=== PATIENT | female | born 2005 | race Caucasian/White ===

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

== ENCOUNTER 2024-12-30 18:15 | Outpatient (CLI) | payer SELFPAY ==
--- NOTE | 2024-12-30 19:20 | XR_ITS ---
PROCEDURE INFORMATION: Exam: XR Right Tibia and Fibula Exam date and time: 12/30/2024 7:11 PM Age: 19 years old Clinical indication: Injury or trauma; Fall; Blunt trauma; Lower leg; Right; Additional info: Fall yesterday tib/fib pain TECHNIQUE: Imaging protocol: Radiologic exam of the right tibia and fibula. Views: 2 views. COMPARISON: No relevant prior studies available. FINDINGS: Bones/joints: Normal. Soft tissues: Normal. IMPRESSION: No acute findings.
== END 2024-12-30 23:59 | disposition home or self-care (01) ==
PROVIDERS: PCP Family Medicine; Visit Provider Nurse Practitioner
DX: S89.91XA Unspecified injury of right lower leg, initial encounter (principal); W10.8XXA Fall (on) (from) other stairs and steps, initial encounter
CPT/HCPCS: 73590

== ENCOUNTER 2025-03-16 16:42 | Emergency (ER) | payer OTHER, SELFPAY ==
--- OUTSIDE RECORDS SUMMARY | 2024-12-17 17:30 | XMS_ITS ---
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 If intended option is not shown, discontinue and re-order from Quick Search* 07/09/2020 Active Problems No Known Problems Encounters Encounter Location Date Provider Diagnosis [facility] [address] [facility] [address] [place] [address] 12/17/2024 Provider Migration Sore throat J02.9 Assessments Encounter Date Diagnosis (ICD Code) Assessment Notes Treatment Notes Treatment Clinical Notes Section Notes 12/17/2024 Sore throat (ICD-10 - J02.9) Plan Of Treatment Medication Medication Name Sig Start Date Stop Date Notes Augmentin 875 MG-125 MG 1 TAB(S) ORALLY EVERY 12 HOURS; Duration: 10 DAY(S) 07/09/2020 *Please review and p ick correct strength-formulation from Medispan options. If intended option is not shown, discontinue and re-order from Quick Search* Progress Notes * Sariah WONG EDOB: [birth year] (19 yo F)Acc No.[id number]:12/17/2024 Patient: Flaquita Sariah SERNA Provider: Juju tang Migration :2005 A ge:19 Y S ex:Female Date:12/17/2024 Address:[address] [place] [address], [place], [id number] Pcp:Farhat Greer Subjective: * Chief Complaints: * 1 . Multum To Medispan Conversion Encounter. * Medical History: Objective: * Vitals: Assessment: * Assessment: 1. S ore throat - J02.9 (Primary) Plan: * Treatment: * * Electronic signature of Prov ider Migration on 03/16/2025 at 05:10 PM EDT Sign off status: Pending * Provider: Juju Bey Date: 0 12/17/2024 Generated for Ly castellano/Dayday/Michaelitting on: 0 03/16/2025 05:10 PM EDT
--- NOTE | 2025-03-16 16:49 | ED_ITS ---
Discharge Plan Disposition Patient Disposition: Home, Self-Care Condition: Good Prescriptions Prescriptions: No Action medroxyprogesterone [Depo-Provera] 150 mg/mL suspension 150 mg IM [id number] Referrals Follow up/Referrals: Ky Lynn MD [Primary Care Provider, Internal Medicine] - See instructions Activity Restrictions/Add. Instructions Additional Instructions/Restrictions: You were evaluated in the emergency department today. Take Tylenol and ibuprofen as needed for pain. Keep your wound clean and dry. It is okay to wash your hair in the shower but use caution and make sure to be gentle around the area. Pat to dry as opposed to rubbing. Elsa will need to be removed in about 10 to 12 days. Return to the emergency department for new or worsening symptoms. Clinical Impressions Clinical Impression: Laceration of scalp Stand Alone Forms Stand Alone Forms: Work/School Release Instructions Patient Instructions: DI for Laceration Repair, DI for Laceration Repair -- Elsa Print Language Print Language: Estonian Discharge ED Provider: Janeth Prescott General Adult HPI <Vale Montague APRN - Last Filed: 03/16/25 17:07> General Chief complaint: Wound/Laceration Stated complaint: AO 03/16/25 1530 laceration top of head Time Seen by Provider: 03/16/25 17:07 Related Data Home Medications ?Medication ?Instructions ?Recorded ?Confirmed medroxyprogesterone 150 mg/mL 150 mg IM [id number] control 03/24/22 12/30/24 intramuscular suspension (Depo-Provera) Allergies Allergy/AdvReac Type Severity Reaction Status Date / Time No Known Allergies Allergy Verified 12/30/24 17:33 <Janeth Prescott DO - Last Filed: 03/16/25 17:32> History of Present Illness HPI narrative: This patient is a 19-year-old female without significant medical history presenting to the emergency department for evaluation of concern for laceration to her scalp. A large glass decorative box fell and hit her head on the top of her head causing an open wound. She did not lose consciousness when this happened. No other concerns or complaints noted. She is unsure when her last tetanus shot was but is not interested in updating today. [facility] <Vale Montague APRN - Last Filed: 03/16/25 17:07> [facility] Disclaimer: The information contained in this section may have been updated after the patient was seen, as this information can be updated by other users. Medical History Lower extremity injury Strep throat Syncope Nausea & vomiting Abdominal pain Surgical History History of tonsillectomy and adenoidectomy History of placement of ear tubes Social History Smoking Status: Never smoker alcohol intake: never substance use type: denies use current occupational status: student Travel in the last 8 weeks?: None Have you lived/traveled outside [place] in past 30 days?: No Contact w/someone who lives/traveled outside [place] past 30 days?: No Exposure to someone with infectious disease in past 14 days?: No Do you have a fever (greater than 100.4 F or 38 C)?: No Have you tested positive for COVID-19?: No Exposed to someone with COVID-19 in past 14 days?: No Do you have a sore throat?: No Do you have a cough?: No Do you have any weakness?: No Do you have any diarrhea?: No Are you experiencing any unusual bleeding?: Yes Do you have any muscle aches/pain?: No Do you have any abdominal pain?: No Are you experiencing loss of taste or smell?: No Other Medical History Have you received the Flu Vaccine for this season: No Have you received the Pneumonia Vaccine: No <Janeth Prescott DO - Last Filed: 03/16/25 17:32> ROS Obtained: Yes All systems reviewed & no additional complaints except as documented Physical Exam <Vale Montague APRN - Last Filed: 03/16/25 17:07> Expanded Head Exam Head image: 2 1. 1 cm laceration. Hemostatic <Janeth Prescott DO - Last Filed: 03/16/25 17:32> General General appearance: alert and in no apparent distress Head Head exam: normocephalic and other Expanded Head Exam Head image: 2 1. 1 cm laceration. Hemostatic Eye Eye exam: Present normal appearance, PERRL and EOMI ENT ENT exam: Present normal exam, normal oropharynx, mucous membranes moist and normal external ear exam Neck Neck exam: Present normal inspection, full ROM and trachea midline; Absent tenderness Chest Chest inspection: Present normal inspection and symmetric chest wall rise; Absent tenderness Respiratory Respiratory exam: Present normal lung sounds bilaterally; Absent respiratory distress, wheezes, stridor or accessory muscle use Cardiovascular Cardiovascular exam: Present regular rate and normal rhythm Abdominal Exam Abdominal exam: Present soft; Absent distention, tenderness or guarding Extremities Exam Extremities exam: Present normal inspection, full ROM and normal capillary refill; Absent tenderness or edema Back Exam Back exam: Present normal inspection and full ROM; Absent tenderness Neurological Exam Neurological exam: Present alert, oriented X3, CN II-XII intact and normal gait; Absent motor sensory deficit Psychiatric Psychiatric exam: Present normal affect and normal mood Skin Skin exam: Present warm and dry Medical Decision Making <Vale Montague APRN - Last Filed: 03/16/25 17:07> Medical Records Screening: Per USPSTF and CDC recommendations, given the prevalence of disease in our region, it is our hospital?s policy to screen for HIV and viral Hepatitis for all patients aged 18 and over and those with ongoing risk factors. Vital Signs: 03/16/25 16:50 Temperature 98.0 F Temperature Source Oral Pulse Rate [Radial] 90 Respiratory Rate 18 Blood Pressure [Right Arm] 120/78 Blood Pressure Mean [Right Arm] 92 Blood Pressure Source [Right Arm] Automatic Cuff Blood Pressure Position [Right Arm] Sitting 02 Sat by Pulse Oximetry 99 Oxygen Delivery Method Room Air Orders (Tests/Meds): ORDERS Category Date Time Status HIV Combo Stat Lab 03/16/25 16:57 Ordered Hepatitis C Ab Qual. W/ RFX Stat Lab 03/16/25 16:57 Ordered <Janeth Prescott DO - Last Filed: 03/16/25 17:32> Medical Records Medical records reviewed: Yes I reviewed the patient's medical records. Kilo Inquiry Pt receiving controlled substance: No Vital Signs: 03/16/25 16:50 Temperature 98.0 F Temperature Source Oral Pulse Rate [Radial] 90 Respiratory Rate 18 Blood Pressure [Right Arm] 120/78 Blood Pressure Mean [Right Arm] 92 Blood Pressure Source [Right Arm] Automatic Cuff Blood Pressure Position [Right Arm] Sitting 02 Sat by Pulse Oximetry 99 Oxygen Delivery Method Room Air Lab Data Lab results reviewed: Yes I reviewed the patient's lab results. Orders (Tests/Meds): ORDERS Category Date Time Status HIV Combo Stat Lab 03/16/25 16:57 Ordered Hepatitis C Ab Qual. W/ RFX Stat Lab 03/16/25 16:57 Ordered Medical Decision Narrative: In summary, this patient is a 19-year-old female presenting to the Emergency Department for evaluation of laceration to the scalp. Differential diagnoses considered include but are not limited to laceration, abrasion, concussion, skull fracture. Ruling out the most morbid conditions drove assessment. On exam, the patient is well-appearing. She has a laceration to the top of her scalp with no significant surrounding soft tissue swelling. No foreign body noted. She did not lose consciousness and has no significant headache. She is neurologically intact. She consents to repair with elsa after explanation of risk versus benefit. She does not consent to Tdap booster. Wound was irrigated and stapled without issue. Patient need to be appropriate for discharge afterward. Strict return precautions given as well as instructions for wound care Procedures <Janeth Prescott DO - Last Filed: 03/16/25 17:32> Risk/Benefits of Procedure(s) Were Explained: Yes Laceration Laceration 1: Site: scalp Size (cm): 1 Description: linear Depth: simple, single layer Pre-repair: wound explored, irrigated extensively and deep structures intact Skin layer closed with: other (Elsa x 2) Critical Care <Janeth Prescott DO - Last Filed: 03/16/25 17:32> Critical Care Time Critical Care Time: No
[2025-03-16 16:50] VITALS: BP 120/78; PULSE 90; RESP 18; TEMP 36.7; O2SAT 99; BMI 24.7
--- OUTSIDE RECORDS SUMMARY | 2025-03-16 17:10 | XMS_ITS | Data Portability ---
Author Organization [facility] [employer] [facility] Address [address] [place] [address] Care Team Providers Care Optometry Assistant Name Role Phone ARIANE ARSHAD Primary Care Provider Unavailabl e Assessment No assessment recorded. Plan of Treatment Reminders Order Date Submit Date Provider Last Modified By Organization Details Last Modified Time Details Appointments FOLLOW UP 15 2024 01:30P Sully Arshad APRN Not available Not available Not available Lab test, urine [address], [address], 01/02/2025 18:16:13 test, urine [address], [address], 10/14/2024 13:31:54 rapid strep group A, throat [address], [address], 08/02/2024 13:36:32 chlamydia trachomat is + neisseria gonorrhoe ae + trichomon as vaginalis rRNA panel, CASTRO+probe 2023 024 ANTHONY [facility], [address] [place] [address], [place], [address], 08/01/2024 05:05:59 test, urine 2023 [email or web address], [address], 07/29/2024 17:32:35 Referral None recorded. Procedures None recorded. Surgeries None recorded. Imaging XR, ankle, 3 or more view [address], [address], 01/03/2025 16:05:17 XR, foot, 3 or more view [address], [address], 01/03/2025 16:04:37 XR, tibia + fibula, 2 view [address], [address], 01/03/2025 16:06:05 Medication Orders medroxypr ogesteron e 150 mg/mL intramusc ular suspensio n 2024 025 Not available 01/02/2025 18:16:13 medroxypr ogesteron e 150 mg/mL intramusc ular suspensio n 2024 025 Not available 10/14/2024 14:27:57 loratadin e 10 mg tablet 2024 025 ANTHONY [facility], [address] [place], [address], 10/10/2024 09:47:41 fluticaso ne propionat e 50 mcg/actua tion nasal spray,deepa pension 2024 025 ANTHONY [facility], [address] [place], [address], 10/10/2024 09:47:40 amoxicill in 500 mg capsule 2023 024 [email or web address] [facility], [address] [place], [address], 10/10/2024 09:29:54 medroxypr ogesteron e 150 mg/mL intramusc ular suspensio n 2023 024 [email or web address] Not available 07/29/2024 17:32:35 Patient TargetsNo targets recorded. Patient Instructions Encounter Date Encounter Id Patient Instructions Last Modified By Organization Details Last Modified Time 10/10/2024 [id number] learning about healthy weight Not available 10/10/2024 09:46:27 Learning About Being Physically Active Not available 10/10/2024 09:46:27 Take medication as prescribed. Increase fluids and rest. Use humidifier at bedside. If symptoms persist or worsen call the clinic. Not available 10/10/2024 09:43:50 Plan of care discussed with patient who voiced understanding. Not available 10/10/2024 09:43:58 Reason for Referral None Reported. Results Created Date Observation Date Name Description Value Unit Range Abnormal Flag Note LastModifiedBy Organization Detail LastModifiedTime 07/29/2008/01/2024 CT, NG, TRICH VAG BY CASTRO chlamydia by CASTRO Negati ve negati ve Not Available [facility] ([facility]) [address] [place], [address], 08/01/2024 05:05:59 07/29/20 24 08/01/2024 CT, NG, TRICH VAG BY CASTRO gonococcus by CASTRO Negati ve negati ve Not Available [facility] ([facility]) [address] [place], [address], 08/01/2024 05:05:59 07/29/20 24 08/01/2024 CT, NG, TRICH VAG BY CASTRO trich vag by CASTRO Negati ve negati ve Not Available [facility] ([facility]) [address], [place], [address], 08/01/2024 05:05:59 07/29/20 24 07/29/2024 pregn wilma test, urine HCG negati ve Not Available [address], [address], 07/29/2024 13:49:36 08/02/20 24 08/02/2024 rapid strep group A, throa t Strep negati ve Not Available [address], [address], 08/02/2024 11:25:18 10/14/19 25 10/14/2024 pregn wilma test, urine HCG negati ve Not Available [address], [address], 10/14/2024 13:15:19 01/03/20 25 01/02/2025 pregn wilma test, urine HCG negati ve Not Available [address], [address], 01/02/2025 10:32:34 01/04/20 25 XR, foot, 3 or more view No observ ation record ed. [email or web address] [address], [address], 01/06/2025 09:37:32 01/04/20 25 XR, ankle , 3 or more view No observ ation record ed. [email or web address] [address], [address], 01/06/2025 09:37:33 01/04/20 25 XR, tibia + fibul a, 2 view No observ ation record ed. [email or web address] [address], [address], 01/06/2025 16:06:48 Result Notes None recorded. Problems Name Problem SNOMED Code Status Onset Date Resolution Date Notes Provider Name and Address Organization Details Recorded Time Sore throat 675972807 Active 2023 Namrata Aldrich annetta, [employer] 4 11:25:13 Divertic ulum of [place] an tube 184934897 Completed 202006/03/2022 Problem Code: H69.83; Problem Code Type: ICD-10; MONIKAKAEL LENTZ annetta, [employer] 2 08:19:01 Otogenic otalgia 20246257 Completed 202010/01/2021 Not Available [facility] 21:12:07 Disorder of upper respirat ory system 489218789 Completed 202112/23/2021 Problem Code: J06.9; Problem Code Type: ICD-10; Not Available [facility] 2 21:12:07 Influenz a 2578541 Completed 202106/03/2022 Problem Code: J10.1; Problem Code Type: ICD-10; MONIKA LENTZ annetta, [employer] 2 08:19:01 Normal body mass index 84448977 Completed 202106/03/2022 Problem Code: Z68.52; Problem Code Type: ICD-10; MONIKA littlejohn, [employer] 2 08:19:01 Normal body mass index 23770684 Completed 202010/01/2021 Problem Code: Z68.52; Problem Code Type: ICD-10; MONIKA littlejohn, [employer] 2 08:19:01 [place]weig ht in childhoo d 442370792 Completed 202006/03/2022 Problem Code: Z68.53; Problem Code Type: ICD-10; MONIKA littlejohn, [employer] 08:19:01 Uses depot contrace ption 222878201 Active 2020 Not Available [facility] 21:12:08 Problem Notes None recorded. Medical Equipment None Reported. Allergies No known drug allergies Medications Name Sig Start Date Stop Date Status Note LastModified by Organization Details LastModified Time amoxicillin 500 mg capsule Take 1 capsule twice a day by oral route. 10/10 completed Not Available Not Available Not Available azithromyci n 250 mg tablet 02/10 completed Not Available Not Available Not Available clindamycin HCl 150 mg capsule 07/27 completed Not Available Not Available Not Available penicillin V potassium 500 mg tablet 04/10 completed Not Available Not Available Not Available Tamiflu 75 mg capsule take 1 capsule (75 mg) by oral route 2 times per day 12/23 completed Not Available Not Available Not Available omeprazole 20 mg capsule,del ayed release 04/10 completed Not Available Not Available Not Available ibuprofen 600 mg tablet 07/27 completed Not Available Not Available Not Available bromphenira mine-pseudo ephedrine-D M 2 mg-30 mg-10 mg/5 mL oral syrup Take 10 mL every 4-6 hours by oral route. 02/10 completed Not Available Not Available Not Available ondansetron 4 mg disintegrat ing tablet 06/03 completed Not Available Not Available Not Available fluticasone propionate 50 mcg/actuati on nasal spray,suspe nsion 2 sprays to each nostril once a day 2024 active Not Available Not Available Not Avai lable medroxyprog esterone 150 mg/mL intramuscul ar suspension inject 0.33 millilite r (50 mg) by intramusc ular route once weekly forat least 6 months 2024 active Not Available Not Available Not Avai lable loratadine 10 mg tablet Take 1 tablet every day by oral route. 2024 active Not Available Not Available Not Avai lable Flowflex COVID-19 Antigen Home Test kit DIRECTED 06/03 completed Not Available Not Available Not Available Paxlovid 300 mg (150 mg x 2)-100 mg tablets in a dose pack Take 1 tablet twice a day by oral route for 5 days. 07/29 completed Not Available Not Available Not Available Vitals Date Recorded Body height Body mass index (BMI) [Percentile] Per age and sex Body mass index (BMI) Body weight Body temperature Heart rate Oxygen saturation Oxygen saturation in Arterial blood by Pulse oximetry Systolic And Diastolic Provider Name and Address Organization Details Last Updated DateTime 5 157.48 cm 81 % 25.6 kg/m2 77770.9 3 g 97.8 [degF] 89 /min 100 % 100 % 108/70 mm[Hg] Georgina Olmedoford [facility]. 5 09:29:48 Date Recorded Body height Body mass index (BMI) [Percentile] Per age and sex Body mass index (BMI) Body weight Heart rate Oxygen saturation Oxygen saturation in Arterial blood by Pulse oximetry Systolic And Diastolic Provider Name and Address Organization Details Last Updated DateTime 5 157.48 cm 81 % 25.6 kg/m2 73575.9 3 g 107 /min 96 % 96 % 105/71 mm[Hg] Namrata [facility] 5 13:15:14 Date Recorded Heart rate Provider Name an d Address Organization Details Last Updated DateTime 01/02/2025 82 /min Ariane Arshad APRN [address] [place] [address], [address], [employer] 01/02/2025 17:56:47 Date Recorded Body height Body mass index (BMI) Body mass index (BMI) [Percentile] Per age and sex Body weight Oxygen saturation Oxygen saturation in Arterial blood by Pulse oximetry Systolic And Diastolic Provider Name and Address Organization Details Last Updated DateTime 5 157.48 cm 26.5 kg/m2 85 % 37581.5 9 g 97 % 97 % 105/55 mm[Hg] Namrata Bauerlly [facility]. 5 17:34:33 Date Recorded Body height Body mass index (BMI) Body mass index (BMI) [Percentile] Per age and sex Body weight Heart rate Oxygen saturation Oxygen saturation in Arterial blood by Pulse oximetry Systolic And Diastolic Provider Name and Address Organization Details Last Updated DateTime 4 157.48 cm 25.7 kg/m2 82 % 34662.0 3 g 107 /min 100 % 100 % 113/71 mm[Hg] Namrata Aldrich [facility] 4 13:53:50 Date Recorded Body height Body mass index (BMI) [Percentile] Per age and sex Body mass index (BMI) Body weight Heart rate Oxygen saturation Oxygen saturation in Arterial blood by Pulse oximetry Systolic And Diastolic Provider Name and Address Organization Details Last Updated DateTime 4 157.48 cm 82 % 25.6 kg/m2 49314.9 3 g 96 /min 97 % 97 % 107/74 mm[Hg] Namrata Aldrich [facility] 4 11:21:14 Social History Question Answer Notes LastModified by Organizat ion Details LastModified Time Tobacco Smoking Status Never Smoker MONIKA littlejohn, [place]. 06/03/2022 08:19:35 Do You Wear A Helmet When Biking? No Information not available 05/13/2024 Are You Blind Or Do You Have Difficulty Seeing? No [email or web address] Information n ot available 08/19/2022 Are You A Caregiver? No [email or web address] Information not available 05/13/2024 In The 14 Days Before Symptom Onset, Have You Had Close Contact With A Laboratory-confirm ed COVID-19 While That Case Was Ill? No [email or web address] Information n ot available 08/19/2022 In The 14 Days Before Symptom Onset, Have You Had Close Contact With A Person Who Is Under Investigation For COVID-19 While That Person Was Ill? No [email or web address] Information not available 08/19/2022 Have You Been To An Area Known To Be High Risk For COVID-19? No [email or web address] Information not available 08/19/2022 Are You Deaf Or Do You Have Serious Difficulty Hearing? No Information not available 08/19/2022 What Type Of Diet Are You Following? REGULAR [email or web address] Information n ot available 08/19/2022 Have There Been Any Changes To Your Family Or Social Situation? No [email or web address] Information no t available 05/13/2024 What Was The Date Of Your Most Recent Tobacco Screening? 01/02/2025 Information not available 01/02/2025 Do You Use Protection During Sex? Always [email or web address] Information not available 05/13/2024 Do You Use Protection Against STDs? Always Information not available 05/13/2024 What Is Your Relationship Status? Single Information not available 06/03/2022 What Is The Name Of Your School? [employer] [email or web address] Information not available 06/03/2022 Do You Use Your Seat Belt Or Car Seat Routinely? Yes Information not available 06/16/2023 Are You Sexually Active? Yes [email or web address] Information not available 05/13/2024 Do You Participate In Social Media? Yes Information not available 05/13/2024 Has Tobacco Cessation Counseling Been Provided? No [email or web address] Information not available 05/13/2024 Have You Recently Traveled Abroad? No [email or web address] Information not available 08/19/2022 Do You Have Difficulty Walking Or Climbing Stairs? No [email or web address] Information not available 08/19/2022 Are You Currently In School? Yes [email or web address] Information not available 06/03/2022 Do You Have Any Dietary Restrictions? No [email or web address] Information not available 08/19/2022 Sex: Female Functional Status Question Answer Note LastModified by Organizat ion Details LastModified Time Do you use any illicit or recreational drugs? No Information not available 06/16/2023 Do you or have you ever used any other forms of tobacco or nicotine? No Information not available 06/16/2023 What is your level of alcohol consumption? None [email or web address] Information not available 08/19/2022 Are you currently employed? No [email or web address] Information not available 08/19/2022 Do you have transportation difficulties? No [email or web address] Information not available 08/19/2022 Are you able to walk? YESWOREST [email or web address] Information not available 08/19/2022 Do you have difficulty doing errands alone? No [email or web address] Information not available 08/19/2022 Are you able to care for yourself? Yes [email or web address] Information not available 08/19/2022 Do you have difficulty dressing or bathing? No [email or web address] Information not available 08/19/2022 Mental Status Question Answer Note LastModified by Organization D etails LastModified Time Do you have difficulty concentrating, remembering or making decisions? No [email or web address] Information no t available 08/19/2022 Family History Relationship Description Onset Age of this Age Resolved Age Notes LastModified by Organization Details LastModified Time Father No current problems or disability [email or web address] Not available 05/16 08:19:14 Mother No current problems or disability [email or web address] Not available 05/16 08:19:14 Medical History Condition Response Emergency room visit since last appointm ent. N Hospitalizations N Gynecological History Statement/Question Response Date of Last Pap Smear Most Recent Mammogram Obstetrics History GPAL:G 0 P 0 0 0 0 Immunizations Vaccine Type Date Status Note Provider Nam e and Address Organization Details Recorded Time Hep A, ped/adol, 2 dose 8 completed MONIKA TOR [employer] 11/04/2022 17:15:36 Hep A, ped/adol, 2 dose 7 completed MONIKA TOR [employer] [employer] 11/04/2022 17:15:36 Hib (PRP-T) 6 completed MONIKA TOR [employer] [employer] 11/04/2022 17:15:36 Hib (PRP-T) 5 completed [employer] 11/04/2022 17:15:36 Hib (PRP-T) 5 completed MONIKA TOR [employer] [employer] 11/04/2022 17:15:36 HPV9 8 completed MONIKAKAEL LENTZ [employer] [employer] 11/04/2022 17:15:36 HPV9 7 completed MONIKAKAEL LENTZ [employer] [employer] 11/04/2022 17:15:36 Pneumococcal conjugate PCV 13 6 completed MONIKA TOR [employer] 11/04/2022 17:15:36 Pneumococcal conjugate PCV 13 5 completed MONIKA LENTZ null, [employer] 11/04/2022 17:15:36 Pneumococcal conjugate PCV 13 5 completed MONIKAKAEL LENTZ null, [employer] 11/04/2022 17:15:36 Pneumococcal conjugate PCV 13 5 completed MONIKA LENTZ null, [employer] 11/04/2022 17:15:36 DTaP 9 completed Not Available [facility] 05/20/2022 23:18:27 DTaP 5 completed Not Available [facility] 05/20/2022 23:18:27 DTaP 6 completed Not Available [facility] 05/20/2022 23:18:27 DTaP 5 completed Not Available [facility] 05/20/2022 23:18:27 DTaP 5 completed Not Available [facility] 05/20/2022 23:18:27 MMR 6 completed Not Available [facility] 05/20/2022 23:18:27 MMRV 9 completed [facility] 05/20/2022 23:18:27 IPV 9 completed [facility] 05/20/2022 23:18:27 IPV 5 completed [facility] 05/20/2022 23:18:28 IPV 5 completed Not Available [facility] 05/20/2022 23:18:28 IPV 5 completed [facility] 05/20/2022 23:18:28 Tdap 5 completed Not Available [facility] 05/20/2022 23:18:28 Tdap 7 completed MONIKA LENTZ null, [employer] 11/04/2022 17:15:36 varicella 6 completed [facility] 05/20/2022 23:18:28 Hep B, adolescent or pediatric 5 completed Not Available [facility] 05/20/2022 23:18:29 Hep B, adolescent or pediatric 6 completed MONIKA LENTZ null, [employer] 11/04/2022 17:15:36 Hep B, adolescent or pediatric 5 completed MONIKA LENTZ null, [employer] 11/04/2022 17:15:36 meningococcal MCV4P 1 completed MONIKAKAEL LENTZ null, [employer] 11/04/2022 17:15:36 meningococcal MCV4P 7 completed MONIKAKAEL LENTZ null, [employer] 11/04/2022 17:15:36 Influenza, split virus, quadrivalent, PF 5 completed Not Available [facility] 01/02/2025 17:25:57 Past Encounters Encounter ID Performer Location Encounter Start Date Encounter Closed Date Diagnosis/Indication Diagnosis SNOMED-CT Code Diagnosis ICD10 Code Diagnosis Note [id number] [place] [address] 06/03/2022 16:13:16 06/03/2022 17:02:48 Uses depot contraception 102163533 Z30.42 [id number] [place] [address] 08/19/2022 15:24:17 08/19/2022 16:02:18 Uses depot contraception 643934137 Z30.42 Normal bod y mass index 59924355 Z68.52 [id number] [place] [address] 11/04/2022 16:58:14 11/04/2022 17:48:10 Uses depot contraception 783664139 Z30.42 Normal bod y mass index 40863577 Z68.52 [id number] [place] [address] 02/02/2023 15:57:10 02/02/2023 16:55:49 Uses depot contraception 953145952 Z30.42 Normal bod y mass index 68670512 Z68.52 [id number] Ariane Arshad [place] [address] 0 04/10/2023 11:55:11 04/10/2023 14:57:51 Contraception care management 713886910 Z30.9 Body mass index 25-29 - overweight 992149714 Z68.25 [id number] Ariane Arshad [place] [address] 0 06/16/2023 16:14:51 06/16/2023 16:49:00 Uses depot contraception 399449900 Z30.42 Body mass index 25-29 - overweight 536163623 Z68.25 [id number] Sallie Nichols, HAND LENS POLISHER [place] [address] 2 07/15/2023 13:02:32 07/17/2023 11:57:41 Acute upper respiratory infection 29680590 J06.9 Body mass index 25-29 - overweight 465787076 Z68.25 Healthy lifestyle discussed. Will follow up at next visit [id number] Sallie Guerra HAND L[employer] POLISH[employer] [place] [address] 2 07/27/2023 08:29:51 07/28/2023 09:44:25 Acute upper respiratory infection 07346411 J06.9 Body mass index 25-29 - overweight 561813587 Z68.25 Healthy lifestyle discussed. Will follow up at next visit [id number] Sallie Guerra APRN [place] [address] 2 07/29/2023 09:14:22 07/29/2023 11:36:16 Acute upper respiratory infection 93236621 J06.9 Body mass index 25-29 - overweight 496617470 Z68.25 Healthy lifestyle discussed. Will follow up at next visit [id number] Ariane Arshad HAND LENS POLISHER [place] [address] 0 09/01/2023 16:21:13 09/01/2023 17:00:41 Surveillance of contraception 392917247 Z30.40 Body mass index 25-29 - overweight 738142351 Z68.25 [id number] Ariane Arshad [place] [address] 0 11/24/2023 16:06:57 11/24/2023 16:33:48 Contraception care management 719141938 Z30.9 Body mass index 25-29 - overweight 843196852 Z68.25 [id number] Ariane Arshad [place] [address] 0 02/11/2024 16:32:44 02/11/2024 17:16:50 Contraception care management 268516688 Z30.9 Body mass index 25-29 - overweight 095619474 Z68.25 [id number] Ariane Arshad [place] [address] 0 05/13/2024 13:27:41 05/13/2024 14:34:12 Contraception care management 474911530 Z30.9 [facility] 25239956 R51.9 COVID-19 318245074 U07.1 Influenza caused by Influenza A virus 802994291 J09.X2 Body mass index 25-29 - overweight 052996612 Z68.25 [id number] Ariane Arshad [place] [address] 0 07/29/2024 13:37:09 07/29/2024 15:55:26 Contraception care management 896247874 Z30.9 Body mass index 25-29 - overweight 035969321 Z68.25 [id number] Ariane Arshad [place] [address] 0 08/02/2024 11:02:59 08/02/2024 11:39:38 Sore throat 793645827 J02.9 Acute pharyngitis 832919 003 J02.9 Adult heal th examination 547593145 Z00.00 Body mass index 25-29 - overweight 149950585 Z68.25 [id number] Morelia Pineda APRN [address] [place] [address] 10/10/2024 09:24:50 10/10/2024 11:28:02 Seasonal allergic rhinitis 796300251 J30.2 Posterior rhinorrhea 758 64932 R09.82 Body mass index 25-29 - overweight 503111319 Z68.25 [id number] [place] [id number] 10/14/2024 12:47:35 10/14/2024 15:20:44 Contraception care management 275868634 Z30.9 Body mass index 25-29 - overweight 142579181 Z68.25 [id number] Ariane Arshad [place] [id number] 01/02/2025 17:07:17 01/02/2025 17:55:05 Contraception care management 061254958 Z30.9 Pain in right foot 46763 29961 01500 M79.671 Pain of ri ght ankle joint 5181005136 1447405 M25.571 Pain in ri ght lower limb 002190635 M79.604 Fall in home 75041476 Y9 2.009 Body mass index 25-29 - overweight 038604908 Z68.25 Health Concerns Section Related Observation LastModified by Organization Detai ls LastModified Time None Recorded Concern Status LastModified by Organization Details LastModified Time None Recorded Advance Directives Directive None Recorded Payers Insurance Date Sequence Insurance Name Policy Number Policy Oh Covered Member ID Oh Member ID Guarantor Name 10/14/2024 1 *SELF PAY* Jesse Diehl 10/14/2024 SLIDING FEE SCHEDULE - DISCOUNT Sariah Diehl 10/14/2024 1 [facility] [facility] (MEDICAID HM) Sariah Diehl [id number] Sariah Diehl 01/05/2025 [place] [facility] [place]ICAID[place] Sariah Diehl [id number] Sariah Diehl 07/26/2024 1 [employer] [facility] (MEDICAID HMO) Sariah Diehl [id number] Sariah Diehl Notes Date Note Type Note Provider Name and Address Organization Details Recorded Time 07/29/2024 text/html pt here today fo r depo bc. pt states shes doing well on current bc and has no new complaints today. Ariane Arshad APRN [address] [place], [address], [place]. 07/29/2024 14:56:22 08/02/2024 text/html pt here today fo r a pre employment physical. 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 pt states that she is physically fit to perform the tasks in the job description. assessment WNL aside from throat red with thick clear drainage. and pt c/o sore throat x2 days. rapid strep neg. i will order abx due to symptoms. advised pt to go to board office to see if they have the physical employment form and for pt to bring back, she will probably need a TB skin test. Ariane Arshad APRN [address] [place], [address], [place]. 08/02/2024 12:48:16 10/10/2024 text/html Upper Respirator y SymptomsReported bypatient.Location:charli al; ears Severity:mild Duration:cannot identify Onset/Timing:cannot identify Context:no sick contacts Associated Symptoms:no chest pain; no sputum production; no shortness of breath; no wheezing; no cyanosis; no fatigue; no sweats; no fever; no morning cough; no sore throat; no vomiting; no diarrhea; no rash; no nausea; no headache; no chills; no malaise; no conjunctivitisNotes:19 year old female presents with complaint of right ear pain, nasal discharge, and PND. She denies any sick contacts. consent for treatment obtained Morelia Pineda APRN [address] [facility], [place], [address], [place]. 10/10/2024 09:47:13 10/14/2024 text/html 19 year old fema le here for depo injection. Denies acute complaints today. State she is doing well with the shot and has had no complaints. Denies BTB. - UPT. Will plan to give depo today, she is to return in 3 months for depo injection. Arianenancy Arshad APRN [address] [facility], [place], [address], [employer] 10/14/2024 13:31:16 01/02/2025 text/html pt here today fo r depo bc. pt states shes doing well on current bc. pt states that she has RLE pain x4 days. pt states that she fell off her porch at home and it slid under the steps. she went to [facility] (asked namrata to get records) and they said it wasnt broken but gave her a boot. pt states that it is very painful to bear wt and that it pain is in her tib/fib area. on exam, some swelling to mid RLE. i will order xrays. pt is coming in am to get xrays. Ariane Arshad APRN [address] [facility], [place], [address], [employer] 01/02/2025 17:57:51 OBGyn Episode No OBEpisode recorded.
--- OUTSIDE RECORDS SUMMARY | 2025-03-16 17:11 | XMS_ITS | Patient Health Record ---
Author Organization [facility] Address [address] [facility] [address] [place] [id number] Care Team Providers Care Gis Professor Name Role Phone Farhat Greer Primary Care Provider Migration, Provider Unavailable Unavailable Medications Medication SIG (Take, Route, Frequency, Duration) Notes Start Date End Date Status Augmentin 875 MG-125 MG 1 TAB(S) ORALLY EVERY 12 HOURS; Duration: 10 DAY(S) *Please review and pick correct strength-formulation from [employer] options. If intended option is not shown, discontinue and re-order from Quick Search* 07/09/2020 Active Immunizations Vaccine Route Administration Date Status Comme nts Adacel (Tdap) VFC Unknown 11/29/2014 Administered Problems No Known Problems Encounters Encounter Location Date Provider Diagnosis [facility] [address] [place] [address] [facility] [address] [place] [id number] 12/17/2024 Provider Migration Sore throat J02.9 Assessments Encounter Date Diagnosis (ICD Code) Assessment Notes Treatment Notes Treatment Clinical Notes Section Notes 12/17/2024 Sore throat (ICD-10 - J02.9) Plan Of Treatment Pending Test Test Name Order Date X ray : Hand, Left 03/01/2010 N-Influenza Screen 07/11/2009 [id number] 09/08/2006 N-Drug Screen: Cocaine,Thc,Opiate,Methad one & Amphetamines 02/15/2010 N-Drug Screen: Cocaine,Thc,Opiate,Methad one & Amphetamines 02/15/2010 Insurance Providers Payer Name Payer Address Payer Phone Subscriber Number Group Number Insured Name Patient Relationship to Insured Coverage Start Date Coverage End Date [employer] [address] [address] [place], [place] [phone] [id number] Sariah Diehl Self - patient is the insured Medical (General) History Surgical History Surgery Date(Month/Year) tonsillectomy/adenoidectomy Hospitalization History Reason Date(Month/Year) MRSA dehydration
[2025-03-16 17:35] VITALS: BP 106/67; PULSE 80; RESP 16; TEMP 36.9; O2SAT 98
== END 2025-03-16 17:36 | disposition home or self-care (01) ==
PROVIDERS: Emergency Provider Emergency Medicine; PCP Family Medicine
DX: S01.01XA Laceration without foreign body of scalp, initial encounter (principal); W25.XXXA Contact with sharp glass, initial encounter
CPT/HCPCS: 12001; 99282